=== PATIENT | female | born 1940 | race Asian ===

== ENCOUNTER 2016-12-16 10:41 | Inpatient (IN) | payer OTHER ==
[~2016-12-16] VITALS: Ht 162.6 cm; Wt 62.1 kg
[2016-12-16 11:30] LABS: CALCIUM 7.7 mg/dL (8.5-10.1); CHLORIDE SERUM 114 mmol/L (98-107); CREATININE SERUM 0.7 mg/dL (0.6-1.0); GLUCOSE SERUM 194 mg/dL (74-106); POTASSIUM SERUM 3.7 mmol/L (3.5-5.1); SODIUM SERUM 143 mmol/L (136-145)
[2016-12-16 11:35] LABS: ALBUMIN 2.8 g/dL (3.4-5.0); ALKALINE PHOSPHATASE 64 U/L (46-116); ALT/SGPT 28 U/L (14-59); AST/SGOT 34 U/L (15-37); BILIRUBIN TOTAL 1.08 mg/dL (0.20-1.00)
[2016-12-16 11:37] LABS: BASOPHIL % 0.5 % (0-2); RED CELL DISTRIBUTION WIDTH 14.5 % (11.5-14.5)
[2016-12-16 11:45] LABS: PLATELET COUNT 86 x10^3mcL (130-400)
[2016-12-16 14:18] LABS: UA SPECIFIC GRAVITY >=1.030 (1.005-1.035); microscopic required? YES; urine erythrocyte TRACE (NEGATIVE)
[2016-12-16 14:27] LABS: AMPHETAMINE QUAL UR NONE DETECTED (NEG <=1000)
[2016-12-16 14:47] LABS: MAGNESIUM 1.7 mg/dL (1.8-2.4); PHOSPHOROUS 4.1 mg/dL (2.5-4.9)
[2016-12-16 14:48] LABS: CHOLESTEROL/HDL RATIO 2.4
[2016-12-16 14:59] LABS: FREE T4 1.05 ng/dL (0.76-1.46); FREE THYROXINE INDEX 2.4 ug/dL (1.4-4.5); T3 TOTAL 1.02 ng/mL; T4(THYROXINE) 6.6 ug/dL (4.7-13.3)
[2016-12-16 15:54] VITALS: BP 97/56
[2016-12-16 18:50] VITALS: BP 98/52
[2016-12-16 19:56] LABS: BASOPHIL % 0.2 % (0-2)
[2016-12-16 19:58] LABS: PLATELET COUNT 53 x10^3mcL (130-400); RED CELL DISTRIBUTION WIDTH 14.6 % (11.5-14.5)
[2016-12-16] MEDS ORDERED: PROPRANOLOL HCL10 MG PO (20:59)
[2016-12-16 21:33] VITALS: BP 147/81
[2016-12-17] VITALS (10 sets, daily range): BP systolic 99–141; BP diastolic 41–70
[2016-12-17 03:24] LABS: BASOPHIL % 0.1 % (0-2)
[2016-12-17 03:28] LABS: PLATELET COUNT 79 x10^3mcL (130-400); RED CELL DISTRIBUTION WIDTH 14.8 % (11.5-14.5)
[2016-12-17 03:42] LABS: rbc morphology (normal/abnorm) ABNORMAL (NORMAL)
[2016-12-17 03:43] LABS: ovalocyte/elliptocyte 1+
[2016-12-17 04:09] LABS: CALCIUM 6.9 mg/dL (8.5-10.1); CARBON DIOXIDE 15.7 mmol/L (21-32); CHLORIDE SERUM 119 mmol/L (98-107); CREATININE SERUM 0.8 mg/dL (0.6-1.0); GLUCOSE SERUM 142 mg/dL (74-106); MAGNESIUM 1.7 mg/dL (1.8-2.4); PHOSPHOROUS 3.9 mg/dL (2.5-4.9); POTASSIUM SERUM 3.9 mmol/L (3.5-5.1); SODIUM SERUM 146 mmol/L (136-145)
[2016-12-17 14:11] LABS: BASOPHIL % 0.3 % (0-2)
[2016-12-17 14:25] LABS: PLATELET COUNT 84 x10^3mcL (130-400); RED CELL DISTRIBUTION WIDTH 15.4 % (11.5-14.5)
[2016-12-18] VITALS (7 sets, daily range): BP systolic 87–135; BP diastolic 52–76
[2016-12-18 03:07] LABS: BASOPHIL % 2.2 % (0-2); PLATELET COUNT 84 x10^3mcL (130-400); RED CELL DISTRIBUTION WIDTH 15.4 % (11.5-14.5)
[2016-12-18 03:09] LABS: rbc morphology (normal/abnorm) ABNORMAL (NORMAL)
[2016-12-18 05:49] LABS: BASOPHIL % 0.3 % (0-2)
[2016-12-18 06:04] LABS: CALCIUM 6.7 mg/dL (8.5-10.1); CARBON DIOXIDE 15.9 mmol/L (21-32); CHLORIDE SERUM 118 mmol/L (98-107); CREATININE SERUM 0.8 mg/dL (0.6-1.0); GLUCOSE SERUM 128 mg/dL (74-106); MAGNESIUM 3.4 mg/dL (1.8-2.4); PHOSPHOROUS 2.9 mg/dL (2.5-4.9); POTASSIUM SERUM 3.9 mmol/L (3.5-5.1); SODIUM SERUM 144 mmol/L (136-145)
[2016-12-18 06:06] LABS: RED CELL DISTRIBUTION WIDTH 16.3 % (11.5-14.5)
[2016-12-18 06:08] LABS: rbc morphology (normal/abnorm) ABNORMAL (NORMAL)
[2016-12-18 06:09] LABS: PLATELET COUNT 50 x10^3mcL (130-400)
[2016-12-19] VITALS (14 sets, daily range): BP systolic 96–202; BP diastolic 50–104
[2016-12-19 11:56] LABS: BASOPHIL % 0.2 % (0-2)
[2016-12-19 12:04] LABS: CALCIUM 6.6 mg/dL (8.5-10.1); CARBON DIOXIDE 17.8 mmol/L (21-32); CHLORIDE SERUM 116 mmol/L (98-107); CREATININE SERUM 0.8 mg/dL (0.6-1.0); GLUCOSE SERUM 123 mg/dL (74-106); POTASSIUM SERUM 3.4 mmol/L (3.5-5.1); SODIUM SERUM 142 mmol/L (136-145)
[2016-12-19 12:15] LABS: PLATELET COUNT 54 x10^3mcL (130-400); RED CELL DISTRIBUTION WIDTH 16.5 % (11.5-14.5)
[2016-12-20 05:33] VITALS: BP 110/57
[2016-12-20 07:01] LABS: CALCIUM 6.8 mg/dL (8.5-10.1); CARBON DIOXIDE 17.7 mmol/L (21-32); CHLORIDE SERUM 116 mmol/L (98-107); CREATININE SERUM 0.5 mg/dL (0.6-1.0); GLUCOSE SERUM 122 mg/dL (74-106); MAGNESIUM 1.8 mg/dL (1.8-2.4); PHOSPHOROUS 1.1 mg/dL (2.5-4.9); POTASSIUM SERUM 3.4 mmol/L (3.5-5.1); SODIUM SERUM 142 mmol/L (136-145)
[2016-12-20 07:19] LABS: BASOPHIL % 0.2 % (0-2)
[2016-12-20 07:20] LABS: PLATELET COUNT 57 x10^3mcL (130-400); RED CELL DISTRIBUTION WIDTH 16.6 % (11.5-14.5)
[2016-12-20 10:10] VITALS: BP 108/54
[2016-12-20 13:30] VITALS: BP 116/61
[2016-12-20 17:20] LABS: PLATELET COUNT 73 x10^3mcL (130-400); RED CELL DISTRIBUTION WIDTH 16.8 % (11.5-14.5)
[2016-12-20 17:43] VITALS: BP 110/55
[2016-12-20 17:55] LABS: BAND NEUTROPHIL 3 % (0-10); BASOPHIL 0 % (0-2); MONOCYTE 6 % (0-7); SEGMENTED NEUTROPHILS 73 % (37-75)
[2016-12-20 17:58] LABS: rbc morphology (normal/abnorm) ABNORMAL (NORMAL)
[2016-12-20 19:45] VITALS: BP 115/61
[2016-12-20 23:23] VITALS: BP 124/47
[2016-12-21 04:32] VITALS: BP 91/54
[2016-12-21 05:51] LABS: CALCIUM 6.5 mg/dL (8.5-10.1); CHLORIDE SERUM 115 mmol/L (98-107); CREATININE SERUM 0.6 mg/dL (0.6-1.0); GLUCOSE SERUM 212 mg/dL (74-106); MAGNESIUM 1.7 mg/dL (1.8-2.4); PHOSPHOROUS 2.2 mg/dL (2.5-4.9); POTASSIUM SERUM 4.5 mmol/L (3.5-5.1); SODIUM SERUM 141 mmol/L (136-145)
[2016-12-21 05:58] LABS: BASOPHIL % 0.4 % (0-2)
[2016-12-21 06:01] LABS: PLATELET COUNT 78 x10^3mcL (130-400); RED CELL DISTRIBUTION WIDTH 15.8 % (11.5-14.5)
[2016-12-21 06:24] LABS: rbc morphology (normal/abnorm) ABNORMAL (NORMAL); tear drop cell (dacryocyte) 1+
[2016-12-21 07:30] VITALS: BP 70/44
[2016-12-21 08:10] VITALS: BP 97/61
[2016-12-21] MEDS ORDERED: IND10 PO (08:53)
[2016-12-21] MEDS ORDERED: APAP/HYDROCODON1 T13 PO (08:55)
[2016-12-21] MEDS ORDERED: DIL2 PO (08:55)
[2016-12-21] MEDS ORDERED: TYL325 PO ×2 (08:56)
[2016-12-21] MEDS ORDERED: MOR2I IV (08:56)
[2016-12-21] MEDS ORDERED: LAC30L PO (08:57)
[2016-12-21] MEDS ORDERED: OSCD PO (08:58)
[2016-12-21] MEDS ORDERED: KLOR-CON M2020 MEQ PO (08:58)
[2016-12-21] MEDS ORDERED: NPHOS PO (08:59)
[2016-12-21] MEDS ORDERED: ZOFI IV (09:18)
[2016-12-21] MEDS ORDERED: PROT40I IV ×2 (09:19→09:25)
[2016-12-21] MEDS ORDERED: THERA TABS1 TAB PO (09:20)
[2016-12-21] MEDS ORDERED: MAG PO (09:27)
[2016-12-21] MEDS ORDERED: [UNRECOGNIZED DRUG - CODE] IV (09:48)
[2016-12-21] MEDS ORDERED: FERROUS SULFAT324 M1 PO (09:49)
[2016-12-21] MEDS ORDERED: PHARMASSURE VI500 MG PO (09:52)
[2016-12-21 10:56] VITALS: BP 91/57
[2016-12-21 11:04] VITALS: Ht 162.6 cm; Wt 62.1 kg
== END 2016-12-21 12:08 | disposition short-term general hospital (02) | DRG 229 ==
LOC: ED 10:41 → IC 13:48 → DU 13:48 → MU 20:26 → DU 20:29 → IC 20:31 → DU 12-17 22:35 → IC 12-18 00:14 → DU 12-19 18:39 → IC 12-20 17:13
PROVIDERS: Emergency Medicine; Internal Medicine Gastroenterology; ADMIT Family Medicine Sports Medicine
PROC: 06L34CZ Occlusion of Esophageal Vein with Extraluminal Device, Percutaneous Endoscopic Approach (ICD-10-PCS; principal; 2016-12-16 23:00)
PROC: 30233N1 Transfusion of Nonautologous Red Blood Cells into Peripheral Vein, Percutaneous Approach (ICD-10-PCS; 2016-12-17)
PROC: 02HV33Z Insertion of Infusion Device into Superior Vena Cava, Percutaneous Approach (ICD-10-PCS; 2016-12-18)
DX: K64.8 Other hemorrhoids (principal); N17.0 Acute kidney failure with tubular necrosis; E43 Unspecified severe protein-calorie malnutrition; I85.11 Secondary esophageal varices with bleeding; E87.0 Hyperosmolality and hypernatremia; D69.59 Other secondary thrombocytopenia; K76.6 Portal hypertension; K74.60 Unspecified cirrhosis of liver; D50.0 Iron deficiency anemia secondary to blood loss (chronic); E83.42 Hypomagnesemia; E83.51 Hypocalcemia; B18.2 Chronic viral hepatitis C; M17.12 Unilateral primary osteoarthritis, left knee; N28.1 Cyst of kidney, acquired; R16.1 Splenomegaly, not elsewhere classified; Z68.20 Body mass index [BMI] 20.0-20.9, adult; K31.819 Angiodysplasia of stomach and duodenum without bleeding; J98.11 Atelectasis; I08.3 Combined rheumatic disorders of mitral, aortic and tricuspid valves
CPT/HCPCS: 36556; 43235; 82962; 83880; 84439; C9113; J0690; J1170; J1642; J2060; J2250; J2270; J2354; J2916; J3010; J3430; J3475; J3480; J3490; J7030; J7040; J7050; P9016; Q0092; Q0163

== ENCOUNTER 2017-03-04 11:49 | Inpatient (IN) | payer OTHER ==
[~2017-03-04] VITALS: Ht 162.6 cm; Wt 50.8 kg
[~2017-03-04 11:49] MED LIST: APAP/HYDROCODON1 T13 PO; DIL2 PO; FERROUS SULFAT324 M1 PO; IND10 PO; KLOR-CON M2020 MEQ PO; LAC30L PO; MAG PO; MOR2I IV; NPHOS PO; OSCD PO; PHARMASSURE VI500 MG PO; PROPRANOLOL HCL10 MG PO; PROT40I IV; THERA TABS1 TAB PO; TYL325 PO; ZOFI IV; [UNRECOGNIZED DRUG - CODE] IV
[2017-03-04 11:56] VITALS: Ht 162.6 cm; Wt 50.8 kg
[2017-03-04 13:13] LABS: BASOPHIL % 0.7 % (0-2)
[2017-03-04 13:21] LABS: PLATELET COUNT 70 x10^3mcL (130-400)
[2017-03-04 13:24] LABS: CALCIUM 8.2 mg/dL (8.5-10.1); CARBON DIOXIDE 22.2 mmol/L (21-32); CHLORIDE SERUM 110 mmol/L (98-107); CREATININE SERUM 0.8 mg/dL (0.6-1.0); GLUCOSE SERUM 104 mg/dL (74-106); POTASSIUM SERUM 3.2 mmol/L (3.5-5.1); SODIUM SERUM 142 mmol/L (136-145)
[2017-03-04 13:28] LABS: ALKALINE PHOSPHATASE 100 U/L (46-116); ALT/SGPT 24 U/L (14-59); AMYLASE 107 U/L (25-115); AST/SGOT 26 U/L (15-37); BILIRUBIN TOTAL 1.2 mg/dL (0.20-1.00); CHOLESTEROL 139 mg/dL (<200); HDL CHOLESTEROL 58 mg/dL (40-60); LIPASE 413 IU/L (73-393); TOTAL PROTEIN, SERUM 7.1 g/dL (6.4-8.2)
[2017-03-04 13:29] LABS: ALBUMIN 3.2 g/dL (3.4-5.0)
[2017-03-04 14:39] LABS: CHOLESTEROL/HDL RATIO 2.4; MAGNESIUM 1.8 mg/dL (1.8-2.4); PHOSPHOROUS 3.8 mg/dL (2.5-4.9)
[2017-03-04 14:46] LABS: T3 TOTAL 1.12 ng/mL
[2017-03-04 14:48] LABS: FREE T4 1.27 ng/dL (0.76-1.46); FREE THYROXINE INDEX 3.4 ug/dL (1.4-4.5); T4(THYROXINE) 9.5 ug/dL (4.7-13.3)
[2017-03-04 15:33] VITALS: BP 130/63
[2017-03-04 16:11] LABS: microscopic required? YES; urine erythrocyte 1+ (NEGATIVE)
[2017-03-04 16:46] LABS: IRON 129 ug/dL (50-170); TOTAL IRON BINDING CAPACITY 307 ug/dL (250-450)
[2017-03-04 16:50] LABS: RED BLOOD CELLS 3.33 M/mm3 (4.10-5.10)
[2017-03-04 17:00] LABS: CALCIUM 7.7 mg/dL (8.5-10.1); CARBON DIOXIDE 19.5 mmol/L (21-32); CHLORIDE SERUM 114 mmol/L (98-107); CREATININE SERUM 0.6 mg/dL (0.6-1.0); GLUCOSE SERUM 103 mg/dL (74-106); POTASSIUM SERUM 3.1 mmol/L (3.5-5.1); SODIUM SERUM 143 mmol/L (136-145)
[2017-03-04 17:56] LABS: RED CELL DISTRIBUTION WIDTH 19.1 % (11.5-14.5)
[2017-03-04 17:57] LABS: PLATELET COUNT 52 x10^3mcL (130-400)
[2017-03-04 18:28] LABS: BAND NEUTROPHIL 0 % (0-10); BASOPHIL 0 % (0-2); MONOCYTE 5 % (0-7); SEGMENTED NEUTROPHILS 30 % (37-75); rbc morphology (normal/abnorm) NORMAL (NORMAL)
[2017-03-04 18:29] LABS: PLATELET MORPHOLOGY PLATELETS DECREASED
[2017-03-04 21:16] VITALS: BP 135/58
[2017-03-05 06:07] VITALS: BP 115/62
[2017-03-05 07:05] LABS: CALCIUM 8.1 mg/dL (8.5-10.1); CARBON DIOXIDE 18.1 mmol/L (21-32); CHLORIDE SERUM 115 mmol/L (98-107); CREATININE SERUM 0.7 mg/dL (0.6-1.0); GLUCOSE SERUM 118 mg/dL (74-106); PHOSPHOROUS 4.3 mg/dL (2.5-4.9); SODIUM SERUM 145 mmol/L (136-145)
[2017-03-05 08:54] LABS: PLATELET COUNT 53 x10^3mcL (130-400); RED CELL DISTRIBUTION WIDTH 18.6 % (11.5-14.5)
[2017-03-05 11:06] VITALS: BP 147/66
[2017-03-05 12:36] LABS: SEGMENTED NEUTROPHILS 40 % (37-75)
[2017-03-05 12:37] LABS: MONOCYTE 24 % (0-7); PLATELET MORPHOLOGY PLATELETS DECREASED; rbc morphology (normal/abnorm) ABNORMAL (NORMAL)
[2017-03-05 14:00] VITALS: BP 137/74
[2017-03-05 17:03] VITALS: BP 133/57
[2017-03-05 21:45] VITALS: BP 145/67
[2017-03-06 05:28] VITALS: BP 135/68
[2017-03-06 06:39] LABS: CALCIUM 7.7 mg/dL (8.5-10.1); CARBON DIOXIDE 21.2 mmol/L (21-32); CHLORIDE SERUM 112 mmol/L (98-107); CREATININE SERUM 0.7 mg/dL (0.6-1.0); GLUCOSE SERUM 120 mg/dL (74-106); MAGNESIUM 1.8 mg/dL (1.8-2.4); PHOSPHOROUS 3.4 mg/dL (2.5-4.9); POTASSIUM SERUM 3.8 mmol/L (3.5-5.1); SODIUM SERUM 142 mmol/L (136-145)
[2017-03-06 06:59] LABS: PLATELET COUNT 56 x10^3mcL (130-400); RED CELL DISTRIBUTION WIDTH 17.4 % (11.5-14.5)
[2017-03-06 09:00] VITALS: BP 126/63
[2017-03-06 09:28] VITALS: BP 140/60
[2017-03-06] MEDS ORDERED: IND10 PO (12:26)
[2017-03-06 12:36] LABS: ATYPICAL LYMPH 1 %; BAND NEUTROPHIL 3 % (0-10); BASOPHIL 0 % (0-2); MONOCYTE 3 % (0-7); SEGMENTED NEUTROPHILS 82 % (37-75)
[2017-03-06 12:37] LABS: rbc morphology (normal/abnorm) ABNORMAL (NORMAL)
[2017-03-06] MEDS ORDERED: COLACE100 MG PO (12:37)
[2017-03-06] MEDS ORDERED: PROPRANOLOL HCL10 MG PO (12:37)
[2017-03-06 12:38] LABS: PLATELET MORPHOLOGY PLATELETS DECREASED
[2017-03-06 13:26] VITALS: BP 140/60
[2017-03-06 14:00] VITALS: BP 146/65
== END 2017-03-06 14:13 | disposition home or self-care (01) | DRG 242 ==
LOC: ED 11:49 → DU 13:46
PROVIDERS: Emergency Medicine; Internal Medicine Gastroenterology; ADMIT Family Medicine
PROC: 06L38CZ Occlusion of Esophageal Vein with Extraluminal Device, Via Natural or Artificial Opening Endoscopic (ICD-10-PCS; principal; 2017-03-05 09:45)
DX: I85.01 Esophageal varices with bleeding (principal); E44.0 Moderate protein-calorie malnutrition; K76.6 Portal hypertension; D70.9 Neutropenia, unspecified; D69.6 Thrombocytopenia, unspecified; K64.8 Other hemorrhoids; E87.8 Other disorders of electrolyte and fluid balance, not elsewhere classified; K62.5 Hemorrhage of anus and rectum; E87.6 Hypokalemia; K74.69 Other cirrhosis of liver; Z68.1 Body mass index [BMI] 19.9 or less, adult; Z90.49 Acquired absence of other specified parts of digestive tract; Z90.721 Acquired absence of ovaries, unilateral
CPT/HCPCS: 43235; 83880; 84439; C9113; J1200; J1610; J2250; J2310; J2354; J3010; J3490; J7030; Q0092

== ENCOUNTER 2017-07-23 06:57 | Day surgery (SDC) | payer OTHER ==
[~2017-07-23] VITALS: Ht 157.5 cm; Wt 50.8 kg
[~2017-07-23 06:57] MED LIST changes: +COLACE100 MG PO
[2017-07-23 07:14] VITALS: BP 131/62
[2017-07-23 10:19] VITALS: BP 119/67
== END 2017-07-23 10:45 | disposition home or self-care (01) ==
LOC: GI 06:57 → OR 08:30 → GI 08:30
PROVIDERS: Internal Medicine Gastroenterology
PROC: 06L38CZ Occlusion of Esophageal Vein with Extraluminal Device, Via Natural or Artificial Opening Endoscopic (ICD-10-PCS; principal; 2017-07-23 08:30)
DX: I85.10 Secondary esophageal varices without bleeding (principal); K74.69 Other cirrhosis of liver; K76.6 Portal hypertension
CPT/HCPCS: 43235; J1200; J1610; J2250; J2310; J3010; J3490

== ENCOUNTER 2018-01-31 07:55 | Day surgery (SDC) | payer OTHER ==
[~2018-01-31] VITALS: Ht 162.6 cm; Wt 53.1 kg
[2018-01-31 07:48] VITALS: BP 137/71
[2018-01-31 08:45] VITALS: BP 134/79
== END 2018-01-31 10:35 | disposition home or self-care (01) ==
LOC: GI 07:55 → OR 08:30 → GI 09:00
PROVIDERS: Internal Medicine Gastroenterology
PROC: 0D568ZZ Destruction of Stomach, Via Natural or Artificial Opening Endoscopic (ICD-10-PCS; principal; 2018-01-31 08:00)
PROC: 06L38CZ Occlusion of Esophageal Vein with Extraluminal Device, Via Natural or Artificial Opening Endoscopic (ICD-10-PCS; 2018-01-31 08:00)
DX: K74.69 Other cirrhosis of liver (principal); I85.10 Secondary esophageal varices without bleeding; K76.6 Portal hypertension; K31.89 Other diseases of stomach and duodenum; K44.9 Diaphragmatic hernia without obstruction or gangrene; I10 Essential (primary) hypertension
CPT/HCPCS: 43235; G0500; J1610; J2250; J2310; J3010; J3490

== ENCOUNTER 2018-05-04 11:59 | Inpatient (IN) | payer OTHER ==
[~2018-05-04] VITALS: Ht 162.6 cm; Wt 51.0 kg
--- NOTE | 2018-05-04 12:17 | NUR ---
PT WAS FOUND AT HOME BY HER CHILDREN AT 0900. MEDIC STS THAT THE CHILDREN STATE THAT SHE SAID SHE HAD FALLEN AT 0300. WHEN THEY FOUND THE PT SHE WAS NO UNCONSCIOUS NOR DID SHE STATE THAT SHE LOST CONSCIOUSNESS. PT STS THAT WHEN SHE GOT UP TO GO "WEE WEE" THAT SHE FELT DIZZY AND FELL TO THE GROUND. THE PT STS THAT SHE DID NOT PASSOUT BUT JUST FELT REALLY DIZZY. PT GOLDEN HITTING HER HEAD AND NO VOMITING HAS OCCURED. PT STS THAT JUST HER LEFT HURTS. PT IS ALERT AND ORIENTED. ANSWERING IN FULL SENTENCES. NO DISTRESS NOTED. VSS. RESP E/U. WILL CONTINUE TO MONITOR.
--- NOTE | 2018-05-04 12:43 | NUR ---
TO X-RAY VIA [facility].
--- NOTE | 2018-05-04 13:25 | NUR ---
LAB AT AT BEDSIDE. PT IS IN POSITION OF COMFORT. NO DISTRESS NOTED. VSS.
[2018-05-04 13:54] LABS: BASOPHIL % 0.1 % (0-2); RED CELL DISTRIBUTION WIDTH 12.9 % (11.5-14.5)
--- NOTE | 2018-05-04 13:54 | NUR ---
PT OBSERVED SLEEPING ON GURNEY IN POSITION OF COMFORT. PT IN NAD. BREATHING EVEN AND UNLABORED. CM AND O2 MONITOR IN PLACE. WILL CONTINUE TO MONITOR.
[2018-05-04 14:01] LABS: PLATELET COUNT 51 x10^3mcL (130-400)
[2018-05-04 14:04] LABS: CALCIUM 8.7 mg/dL (8.5-10.1); CARBON DIOXIDE 19.4 mmol/L (21-32); CHLORIDE SERUM 108 mmol/L (98-107); CREATININE SERUM 0.9 mg/dL (0.6-1.0); GLUCOSE SERUM 132 mg/dL (74-106); POTASSIUM SERUM 3.9 mmol/L (3.5-5.1); SODIUM SERUM 139 mmol/L (136-145)
[2018-05-04 14:09] LABS: ALBUMIN 3.5 g/dL (3.4-5.0); ALKALINE PHOSPHATASE 69 U/L (46-116); ALT/SGPT 53 U/L (14-59); AST/SGOT 45 U/L (15-37); BILIRUBIN TOTAL 1.5 mg/dL (0.20-1.00); TOTAL PROTEIN, SERUM 7.2 g/dL (6.4-8.2)
--- NOTE | 2018-05-04 14:46 | NUR ---
PT IN POSITION OF COMFORT. ANSWERING ALL QUESTION CLEARLY. ALERT AND ORIENTED. VSS. RESP E/U. PT WAS GIVEN MORE BLANKETS. PT STILL HAS SOME PAIN 05/25. NO DISTRESS NOTED. WILL CONTINUE TO MONITOR.
[2018-05-04] MEDS ORDERED: SPIRONOLACTONE50 MG PO (15:23)
--- NOTE | 2018-05-04 15:33 | NUR ---
FAMILY PROVIDED MED LIST W/ SOME DOSAGES BUT NO FREQUENCIES. UNABLE TO COMPLETE MED REC.
[2018-05-04 15:42] LABS: MAGNESIUM 1.7 mg/dL (1.8-2.4); PHOSPHOROUS 3.2 mg/dL (2.5-4.9)
--- NOTE | 2018-05-04 15:48 | NUR ---
REPORT GIVEN TO NEVA HERBERT
[2018-05-04 15:49] LABS: T3 TOTAL 1.11 ng/mL
[2018-05-04 15:50] LABS: FREE T4 1.16 ng/dL (0.76-1.46); FREE THYROXINE INDEX 2.9 ug/dL (1.4-4.5); T4(THYROXINE) 8.4 ug/dL (4.7-13.3)
[2018-05-04] MEDS ORDERED: PROPRANOLOL HCL10 MG PO (15:58)
--- NOTE | 2018-05-04 16:03 | NUR ---
PT CAME IN VIA [facility] FROM E/D, ACCOMPANIED BY RN, TRANSPORTER, AND PT'S DAUGHTER VIRAJ MENJIVAR. PT A/A/O X 2 (PERSON, PURPOSE, EPISODES OF FORGETFULNESS); PT IS TAGALOG-SPEAKING, [facility]. PT WAS TRANSFERRED FROM [facility] TO BED, SHOOTING LEFT HIP PAIN 10/25; LEFT HIP AND UPPER PORTION OF THIGH WITH +2 EDEMA, NON-PITTING. BED TRAPEZE INSTALLED ON BED FOR PT'S MAXIMUM BED MOBILITY, FALL PREVENTION PROTOCOL INITIATED. DENIES CHEST PAIN OR DISCOMFORT AT THIS TIME. NO RESPIRATORY DISTRESS NOTED. IV SITE LFA 20G, CDI. ORIENTED PT AND DAUGHTER TO ROOM, BED CONTROLS, CALL LIGHT SYSTEM. SIDE RAILS UP X 2, BED IN LOW POSITION. WILL ENDORSE TO KEON CALLE.
--- NOTE | 2018-05-04 16:05 | NUR ---
PT TAKEN UPSTAIRS BY EMT. VSS.
[2018-05-04 16:27] VITALS: BP 136/68
--- NOTE | 2018-05-04 16:33 | NUR ---
DR. NATH AT BEDSIDE SETTING UP BUCKS TRACTION FOR PT. AT THIS TIME.
--- NOTE | 2018-05-04 17:10 | NUR ---
NOTED 7 LBS BUCKS TRACTION TO LLE. BUCKS TRACTION WITH OVERHEAD TRAPEZE WAS SET UP BY DR. NATH.
--- NOTE | 2018-05-04 19:59 | NUR ---
SHIFT REASSESSMENT DONE.PATIENT ALERT AND ORIENTED X 2.NEEDS ANTICIPATED.DAUGHTER AT BEDSIDER,SUPPORTIVE OF CARE.PATIENT HAS L HIP FX.BUCKS TRACTION 7 LBS.OVERHEAD TRAPEZE.CORRECT BODY ALIGNMENT MAINTAINED.REMINDED OFFICE MACHINE INSTALLER WHEN PATIENT ASSIST BEDPAN,WE NEED UA FROM ADMISSION.MEDSURG PATIENT.EDEMA NOTED L HIP.L UPPER THIGH.WILL GIVE PAIN MED WHEN DUE.
--- NOTE | 2018-05-04 20:00 | NUR ---
SHIFT REASSESSMENT DOEN.PATIENT VERY ALERT AND ORIENTED X 4 AT THIS TIME,DAUGHTER AT BEDSIDE,SPEAKS FRENCH AND TAGALOG,NEEDS ANTICIPATED.REPORT SAY [place].BREATHING EASY.GEN WEAKNESS,L HIP FX.HAS BUCKS TRACTION 7 LBS L LEG.IN CORRECT BODY ALIGNMENT.OVERHEAD TRAPEZE IN PLACE.NS AT 70 CC/ HOUR.LFA.MEDSURG PATIENT.L HIP PITTING EDEMA NOTED, AND L UPPERTHIGH.ASKING FOR PAIN MED.WILL CHECK.CALL LIGHT IN REACH,WANTED TO USE BEDPAN,TRANSPORTATION DISPATCHER ASSISTED HER,VOIDED,UA SENT TO LAB.
--- NOTE | 2018-05-04 20:45 | NUR ---
NORCO GIVEN,BUT WANTING PAIN SHOT,WILL GIVE LATER.
--- NOTE | 2018-05-04 21:00 | NUR ---
BRUSHING HER TEETH,PM CARE DONE BY SELF,ASSIST ADLS PRN.
[2018-05-04 22:09] LABS: microscopic required? NO
[2018-05-04 22:24] LABS: urine erythrocyte NEGATIVE (NEGATIVE)
--- NOTE | 2018-05-04 23:50 | NUR ---
NO COMPLAINT,NEEDS ATTENDED.CALL LIGHT IN REACH.
[2018-05-05 02:29] VITALS: BP 98/52
--- NOTE | 2018-05-05 04:00 | NUR ---
SLEEPING WELL DURING THE NIGHT.BUCKS TRACTION [address]WILL ENDORSE TO NEXT SHIFT.
[2018-05-05 05:35] VITALS: BP 106/59
--- NOTE | 2018-05-05 06:15 | NUR ---
WILL BE NPO AFTER MIDNIGHT TONIGHT,POSSIBLE SURGERY.DR BARCLAY ORTHO CONSULT.
[2018-05-05 06:43] VITALS: Ht 162.6 cm; Wt 51.0 kg
--- NOTE | 2018-05-05 06:44 | NUR ---
DAUGHTER FROM [place] UPDATED WITH HER CONDITION.PHONE NO. SIMONA PERDOMO, .ANOTHER DAUGHTER CLIFFORD OSPINA [phone].
[2018-05-05 07:14] LABS: BASOPHIL % 0.2 % (0-2)
[2018-05-05 07:28] LABS: CARBON DIOXIDE 21.6 mmol/L (21-32); CHLORIDE SERUM 110 mmol/L (98-107); CREATININE SERUM 0.6 mg/dL (0.6-1.0); GLUCOSE SERUM 118 mg/dL (74-106); MAGNESIUM 1.7 mg/dL (1.8-2.4); SODIUM SERUM 143 mmol/L (136-145)
--- NOTE | 2018-05-05 07:31 | NUR ---
RECEIVED PT FROM [place]. PT AWAKE, ALERT A/OX4. PT ON RA, NO RESP DISTRESS NOTED. LUNGS CTA. DENIES HEADACHE, DENIES CHEST PAIN. PT REPORTS PAIN IN LEFT HIP 5/10 BUT TOLERABLE AT THIS TIME. WANTS TO HAVE MEDICINE "LATER". PULSE PALPABLE IN RIGHT FOOT. PT LEFT LEG BANDAGED AT THIS TIME AND IN TRACTION WITH 7 LB WEIGHT. ACTIVE BOWEL SOUNDS. PT REPORTS LAST BM 05/04/18. IV ACCESS LFA 20G C/D/I WITH NS AT 70ML/HR. SAFETY MEASURES IN PLACE. BED LOW AND LOCKED. CALL LIGHT WITHIN REACH.
[2018-05-05 08:15] LABS: PLATELET COUNT 40 x10^3mcL (130-400)
--- NOTE | 2018-05-05 08:38 | NUR ---
DR. HURTADO AND RESIDENT DR. NATH ROUND ON PATIENT, DR. HURTADO AWARE PLTS 40. INFORM DR. HURTADO PATIENT NEED MEJIA DUE TO VERY PAINFUL WITH MOVEMENT.
[2018-05-05 09:07] VITALS: BP 110/58
--- NOTE | 2018-05-05 14:45 | NUR ---
PATIENT RESTING IN BED AWAKE/ALERT, NO C/O PAIN AT THIS TIME. GAVE PO MEDS. PATIENT ASKING FOR BEDPAN REMIND PATIENT GOT MEJIA CATHETER FOR URINE, CALL LIGHT IN REACH.
[2018-05-05 14:47] VITALS: BP 129/49
--- NOTE | 2018-05-05 15:05 | NUR ---
OBTAINED TELEPHONE CONSENT FROM ANNALISE OSPINA, SON-IN-LAW OF THE PATIENT. DAUGHTER OF PATIENT CLIFFORD GAVE PERMISSION FOR TO GIVE CONSENT. CONSENT FOR SURGERY, ANESTHESIA AND BLOOD TRANSFUSION GIVEN BY TELEPHONE AND WITNESSED BY JOSE HERBERT.
--- NOTE | 2018-05-05 15:56 | NUR ---
DR BARCLAY HERE TO TALK TO PATIENT REGARDING SURGERY TOMORROW.
[2018-05-05 16:46] VITALS: BP 118/60
--- NOTE | 2018-05-05 16:55 | NUR ---
SPOKE WITH DAUGHTER, SIMONA. PER DAUGHTER, PT DOES NOT ALWAYS ASK FOR PAIN MED. PT COMPLAINING OF AN ACHE THAT IS CONSTANT. 07/25. MORPHINE GIVEN IVP ORDERED PRN (SEE EMAR) WILL CONTINUE TO MONITOR.
--- NOTE | 2018-05-05 18:40 | NUR ---
PT STABLE AT THIS TIME. PT AWAKE AND ALERT. PT RESTING IN BED, NO ACUTE DISTRESS NOTED AT THIS TIME. ALL NEEDS MET THROUGHOUT SHIFT. SAFETY MEASURES MAINTAINED. WILL CONTINUE TO MONITOR AND ENDORSE TO SLITTING MACHINE OPERATOR.
--- NOTE | 2018-05-05 19:57 | NUR ---
RECEIVED PT FROM DAY SHIFT RN. PT IS AAOX3. PT DENIES ANY PAIN. NO SIGNS OF DISTRESS NOTED. IV LFA PATENT, INFUSING WELL. F/C IN PLACE DRAINING YELLOW URINE IN BAG. LEFT HIP EDEMA NOTED, BUCKS TRACTION IN PLACE, DENIES DISCOMFORT. CALL BUTTON WITHIN REACH. SAFETY PRECAUTIONS IN PLACE. WILL CONTINUE TO MONITOR.
[2018-05-05 21:09] VITALS: BP 115/59
--- NOTE | 2018-05-06 00:57 | NUR ---
PT USED THE BEDPAN, SENIOR PROCESS ENGINEER AT BEDSIDE TO ASSIST. WILL MONITOR.
--- NOTE | 2018-05-06 01:34 | NUR ---
VERIFIED WITH KURTIS FROM BLOOD BANK PLATELETS WILL BE READY FOR OFFSHORING MANAGER FOR PT SURGERY.
--- NOTE | 2018-05-06 03:40 | NUR ---
ROUNDS MADE. PT BREATHING EVEN AND UNLABORED. NO SIGNS OF DISTRESS NOTED. BUCKS TRACTION IN PLACE WITH WEIGHTS HANGING FREELY. IV INFUSING WELL. WILL CONTINUE TO MONITOR.
--- NOTE | 2018-05-06 04:32 | NUR ---
RECEIVED A CALL FROM CLIFFORD OSPINA (DAUGHTER) WANTED AN UPDATE ON PT, ALSO IS REQUESTING TO SPEAK TO THE THE SURGEON IN CHARGE FOR MORE INFORTMATION, WILL ENDORSE TO AM SHIFT, DAUGHTER STATED SHE WILL CALL BACK.
--- NOTE | 2018-05-06 04:57 | NUR ---
PT SLEPT ON AND OFF THROUGHOUT THE NIGHT WITH NO SIGNS OF DISTRESS. BREATHING EVEN AND UNLBAORED WITH NO SIGNS OF RESP DISTRESS. PT DENIES ANY PAIN. PT DID NOT REPORT ANY PAIN THROUGHOUT THE NIGHT. IV LFA PATENT AND INFUSING WELL. BUCKS TRACTION IN PLACE TO LLE WITH WEIGHTS HANGING FREELY. PT NPO SINCE MIDNIGHT. CALL BUTTON WITHIN REACH. SAFETY PRECAUTIONS IN PLACE. WILL CONTINUE TO MONITOR AND ENDORSE CARE TO DAY SHIFT RN.
[2018-05-06 05:59] VITALS: BP 104/51
--- NOTE | 2018-05-06 06:19 | NUR ---
RECEIVED A CALL FROM SIMONA (DAUGHTER) CURRENTLY SPEAKING TO PT OVER THE PHONE.
--- NOTE | 2018-05-06 07:30 | NUR ---
RECEIVED PATIENT AWAKE/ALERT IN BED, DENIES PAIN. LEFT LEG WITH WONG'S TRACTION IN PLACE, DENIES NUMBNESS OR TINGLING TO LLE. IV TO LFA INTACT AND INFUSING WELL. NO REDNESS OR SWELLING NOTED. MEJIA WITH YELLOW URINE DRAINAGE NOTED. POC EXPLAINED. CALL LIGHT IN REACH.
--- NOTE | 2018-05-06 07:42 | NUR ---
PT AWAKE DENIES ANY PAIN, NO SIGNS OF DISTRESS NOTED. ENDORSED CARE TO DAY SHIFT RN, ALL QUESTIONS ADDRESSED.
[2018-05-06 09:44] VITALS: BP 107/53
--- NOTE | 2018-05-06 09:45 | NUR ---
PATIENT C/O PAIN TO LEFT HIP 5/10 AFTER PREOP PREP MORPHINE 2MG IVP GIVEN, JUDY WASH COMPLETED AND MEJIA CARE PROVIDED WITH CURTAIN SUPERVISOR ASSISTED. REPOSITION UP IN BED RESTING COMFORTABLY. NO DISTRESS NOTED. KEEP NPO. IV TO LFA PATENT AND INTACT. DTR SIMONA CALLED FOR UPDATED. TRANSFER TO OR DTR HAVE MORE QUESTIONS REGARD PROCEDURE.
[2018-05-06 09:58] LABS: CALCIUM 7.9 mg/dL (8.5-10.1); CARBON DIOXIDE 22.5 mmol/L (21-32); CHLORIDE SERUM 111 mmol/L (98-107); CREATININE SERUM 0.7 mg/dL (0.6-1.0); GLUCOSE SERUM 102 mg/dL (74-106); POTASSIUM SERUM 3.5 mmol/L (3.5-5.1); SODIUM SERUM 142 mmol/L (136-145)
--- NOTE | 2018-05-06 10:50 | NUR ---
PATIENT RESTING IN BED COMFORTABLE AND PAIN IS TOLERATED. DR. SWANN WITH RESIDENTS AT BEDSIDE DISCUSS POC WITH SON-IN-LAW ANNALISE. ALL QUESTIONS ADDRESSED. OFFERED WARM BLANKET PER REQUEST, BILLIARD TABLE ASSEMBLER AT BEDSIDE DRAWING BLOOD. NEEDS MET. CALL LIGHT IN REACH.
--- NOTE | 2018-05-06 11:34 | NUR ---
PATIENT IN BED WITH SON-IN-LAW, HEPLOCK IV AND FLUSH WELL, NO REDNESS/SWELLING NOTED. OR NURSE GETTING PATIENT READY TO GO OFF FLOOR. PATIENT TRANPORT OFF THE FLOOR VIA BED WITH SON-IN-LAW ANNALISE. ANNALISE REMOVED AND TAKE PATIENT YELLOW RING HOME. DENTURE IN THE CUP AT BEDSIDE.
[2018-05-06 12:32] LABS: BASOPHIL % 0.2 % (0-2); RED CELL DISTRIBUTION WIDTH 13.1 % (11.5-14.5)
[2018-05-06 12:38] LABS: PLATELET COUNT 35 x10^3mcL (130-400)
--- NOTE | 2018-05-06 12:53 | NUR ---
Initial Nutrition Assessment Dx: Left hip fracture PMHx: Liver cirrhosis of unknown origin with portal HTN, esophageal varices PSHx: Cholecystectomy, oophorectomy Labs: (05/06) Na 142, K 3.5, BG 102, A1c 5.5, WBC 4.5, H/H 11.1L/31L Meds: Aldactone, Colace, Inderal, Mag-Ox, Morphine, [place], NSIV, Tylenol, Zofran Diet: NPO for sx procedure (previously on Regular diet up to 05/05/18) PO Intake: (05/05) B: 100% D: 60% Ht: 64" (163 cm) Wt: 112# (51 kg) BMI: 19.3 (Underweight for advanced age) IBW: 120# %IBW: 94% UBW: 110-120# Age: 77 y/o elderly female Food Allergies: NKFA Skin: Intact Blas: 16 Edema: Trace to BLE's GI: Last BM x 1 (05/06) Per H&P, pt. admitted with hip pain associated with recent fall at home prior to admission d/t feeling dizzy and falling to the ground. Otherwise, no acute events overnight per provider. Pt. will be undergoing surgical procedure today 05/06/18 for left hip fracture. Pt. endorses fair to good appetite that has improved since admission and does not have GI distress associated with diet order. T: Appears underweight/malnourished Problem with: No c/o N/V/D/C Problems with: Chewing: N Swallowing: N Current appetite: Good, fair Recent wt change: None %wt change: N/A Vitamin/Supplement use: None Special diet at home: Regular Physical activity: Ambulates with a cane at baseline without assistance. Education: No diet education provided during visit. Estimated Nutritional Needs Based on actual body weight 51 kg: Energy: 5088-1871 kcal/d (30-32 kcal/kg- wound healing, underweight) Protein: 61-71 g/d (1.2-1.4 g/kg)-wound healing support and preservation of lean body mass Fluid: 8999-8782 ml/d (1 ml/kcal-fluid balance) or per doctor Nutrition Diagnosis 1. Increased nutrient needs r/t scheduled surgical procedure for ORIF s/p left hip fx AEB needs for procedure-associated wound healing nutritional support and measured underweight BMI for advanced age of 19.3. Intervention/RD recommendations 1. When procedure is complete and pt. is able to tolerate PO diet, advance diet to regular diet and add Ensure Enlive BID to add an additional 700 kcal and 40 g protein for wound healing support. Monitor/Evaluate Goal: PO intake at least 75% of estimated needs Monitor: PO intake, Labs, GI function, diet tolerance, weights, skin F/U in 3-5 days as moderate risk (05/09-05/11)
--- NOTE | 2018-05-06 15:35 | NUR ---
RECEIVED PATIENT SLEEPY AROUSED BY TOUCH, APPEAR COMFORTABLE, NO DISTRESS NOTED. LT HIP DRESING CDI. NO DRAINAGE NOTED. PER DR. BARCLAY KEEP PATIENT ON LEFT SIDE FOR AT LEAST 2 HRS. MEJIA INTACT AND IV TO LFA PATENT AND FLUSH WELL. CONNECT TO IV PUMP CONT IVF ORDERED. SCD IN PLACE. UPDATED ANNALISE PATIENT SLEEPY BUT AROUSABLE. CALL LIGHT IN REACH.
[2018-05-06 16:40] VITALS: BP 104/61
--- NOTE | 2018-05-06 17:15 | NUR ---
PATIENT REMAIN SLEEPING, NO DISTRESS NOTED. BENJA LAYING ON LEFT SIDE ORDERED. DRESSING ON LEFT HIP NO BLEEDING NOTED. CALL LIGHT IN REACH. CONT TO MONITOR.
--- NOTE | 2018-05-06 18:25 | NUR ---
PATIENT STILL DROWSY, OPEN EYES WHEN REPOSITION, NO C/O PAIN AT THIS TIME, LEFT DINNER TRAY ON TABLE PATIENT TO DROWSY TO EAT. IV INTACT AND INFUSING WELL. NO REDNESS OR SWELLING NOTED. MEJIA INTACT AND PATENT. LT HIP DRESSING CDI NO BLEEDING NOTED. CALL LIGHT IN REACH.
[2018-05-06 21:07] VITALS: BP 103/53
[2018-05-06 21:59] VITALS: BP 100/50
--- NOTE | 2018-05-07 01:04 | NUR ---
PATIENT QUIETLY RESTING IN BED, CALL LIGHT WITHIN REACH. DENIES ANY PAIN. BREATHING IS EVEN AND UNLABORED. ALERT TO SELF ONLY WITH REORIENTATION NEEDED. TRAPEZE OVERHEAD AND BED ALARM ON FOR PATIENT SAFETY. IVF INFUSING TO LFA AT 70ML/HR NS, NO INFILTRATION NOTED.
[2018-05-07 06:09] VITALS: BP 98/44
[2018-05-07 06:59] LABS: CALCIUM 6.9 mg/dL (8.5-10.1); CARBON DIOXIDE 21.1 mmol/L (21-32); CHLORIDE SERUM 111 mmol/L (98-107); CREATININE SERUM 0.8 mg/dL (0.6-1.0); GLUCOSE SERUM 112 mg/dL (74-106); MAGNESIUM 1.7 mg/dL (1.8-2.4); SODIUM SERUM 143 mmol/L (136-145)
[2018-05-07 07:52] LABS: BASOPHIL % 0.1 % (0-2); RED CELL DISTRIBUTION WIDTH 13.4 % (11.5-14.5)
[2018-05-07 07:55] LABS: PLATELET COUNT 74 x10^3mcL (130-400)
--- NOTE | 2018-05-07 08:00 | NUR ---
RECEIVED PATIENT ALERT/ORIENTED TO PERSON. ABLE TO MADE NEEDS KNOWN. NO RESP DISTRESS ON RA. DENIED CHEST PAIN. 2ND DAY OF S/P ORIF L HIP. DRSG TO L HIP DRY/INTACT W/ OLD BLLOD OOZING NOTED. IVF OF NS 70CC/HR. IV SITE TO LFA INTACT. MEJIA PATENT W/ EMILIANO URINE OUTPUT. PATIENT TOLERATED CLEAR LIQUID DIET. NO N/V. C/O HUMGRY. ASSISTED REPOSITION IN BED. CALL LIGHT IN REACH.
[2018-05-07 09:51] VITALS: BP 84/47
--- NOTE | 2018-05-07 12:00 | NUR ---
MORPHINE 2MG IVP GIVEN AT 1030 FOR OOB W/ PHYSICAL THERAPIST. PATIENT HAD SAT ON CHAIR FOR 1 HOUR. PATIENT HAD LOOSE BM THIS TIME.
--- NOTE | 2018-05-07 13:30 | NUR ---
C/O LT HIP INCISIONAL PAIN ON 07/25; NORCO 7.5/325 PO GIVEN. CONTINUE MONITOR.
[2018-05-07 15:55] VITALS: BP 93/50
--- NOTE | 2018-05-07 18:25 | NUR ---
CONDITION STABLE. SKIN WARM/PINK. DENIED PAIN NOW. MEJIA 800CC OF AMBUR CLEAR URINE OUTPUT. HAD BM X1 THIS SHIFT. IVF OF NS 70CC/HR CONTINUED. ENDORSED CARE TO NOC NURSE.
--- NOTE | 2018-05-07 19:10 | NUR ---
REPORT RECIEVED FROM DAY SHIFT RN. PATIENT WAS SEEN AND IS RESTING IN BED COMFORTBALY. ON ROOM IAR. NO SOB OR DISTRESS NOTED. DENIES CHEST PAIN. NO C/O OF PAIN. IV TO THE LFA INFUSING NS WELL. PATENT AND INTACT. NO REDNESS OR SWELLING NOTED. DRESSING TO THE LEFT HIP IN PLACE, CDI. FC IN PLACE WITH YELLOW EMILIANO URINE. COMFORT AND SAFETY MEASURES MAINTAINED. CALL LIGHT IS WITHIN REACH. INSTRUCTED PATIENT TO CALL FOR ASSISTANCE. BED IS LOCKED AND IN THE LOWEST POSITION. SIDE RAILS UP X2. WILL CONTINUE TO MONITOR.
[2018-05-07 20:33] VITALS: BP 111/49
--- NOTE | 2018-05-07 21:26 | NUR ---
PATIENT IS C/O OF PAIN IN HER LEFT HIP AND LEG. FACIAL GRIMACING NOTED. PRN NORCO WAS ADMINSITERED PRESCRIBED. WILL CONTINUE TO MONITOR AND REASSESS PAIN LEVEL.
--- NOTE | 2018-05-08 00:30 | NUR ---
PATIENT IS ASLEEP AT THIS TIME. ON ROOM AIR. NO SOB OR DISTRESS NOTED. CALL LIGHT IS WITHIN REACH. WILL CONTINUE TO MONITOR
--- NOTE | 2018-05-08 03:12 | NUR ---
PATIENT IS ASLEEP AT THIS TIME. ON ROOM AIR. NO SOB OR RESP DISTRESS. CALL LIGHT WITHIN REACH. WILL CONTINUE TO MONITOR
[2018-05-08 05:26] VITALS: BP 97/48
--- NOTE | 2018-05-08 05:45 | NUR ---
ASSISTED PATIENT WAS DENTAL HYGIENE.
--- NOTE | 2018-05-08 06:26 | NUR ---
PATIENT SLEPT IN INTERVALS THROUGHOUT THE NIGHT. NO ACUTE CHANGES NOTED. ON ROOM AIR. NO SOB OR DISTRESS NOTED. C/O OF PAIN X1. IV TO THE LFA INFUSING NS WELL. PATENT AND INTACT. NO REDNESS OR SWELLING NOTED. COMFORT AND SAFETY MEASURES MAINTAINED. FC 850ML OUT YELLOW EMILIANO URINE. CALL LIGHT IS WITHIN REACH. BED IS LOCKED AND IN THE LOWEST POSITION. SIDE RAILS UP X2. WILL ENDORSE CARE TO DAY SHIFT RN.
[2018-05-08 07:22] LABS: BASOPHIL % 0.3 % (0-2); RED CELL DISTRIBUTION WIDTH 12.3 % (11.5-14.5)
[2018-05-08 07:35] LABS: PLATELET COUNT 60 x10^3mcL (130-400)
[2018-05-08 07:41] LABS: CALCIUM 7.3 mg/dL (8.5-10.1); CARBON DIOXIDE 21.5 mmol/L (21-32); CHLORIDE SERUM 112 mmol/L (98-107); CREATININE SERUM 0.7 mg/dL (0.6-1.0); GLUCOSE SERUM 111 mg/dL (74-106); MAGNESIUM 1.7 mg/dL (1.8-2.4); POTASSIUM SERUM 3.6 mmol/L (3.5-5.1); SODIUM SERUM 140 mmol/L (136-145)
--- NOTE | 2018-05-08 08:00 | NUR ---
RECEIVED PATIENT ALERT/ORIENTED TO PERSON/PLACE AND TIME. NO RESP DISTRESS ON RA. DENIED CHEST PAIN. 3ED DAY OF POST LT HIP ORIF SURGERY. DRSG TO LT HIP DRY/INTACT. OLD OOZING TO DRSG NOTED. MEJIA PATENT W/ YELLOW URINE OUTPUT. SCD TO BLE. NO C/O PAIN NOW. TOLERATED REGULAR DIET BREAKFAST. IVF OF NS 70CC/HR. IV ISTE TO LFA INTACT. CALL LIGHT IN REACH.
[2018-05-08 09:29] VITALS: BP 92/40
--- NOTE | 2018-05-08 10:17 | NUR ---
MEJIA CATH D/C'D PER ORDER. 250CC OF DARK YELLOW URINE COLLECTED. PATIENT OOB W/ PHYSICAL THERAPIST AND WALKED 20 FTS. PATIENT FORMED BM X1.
[2018-05-08 11:55] VITALS: BP 92/40
[2018-05-08] MEDS ORDERED: NORCO1 TA1 PO (12:53)
--- NOTE | 2018-05-08 15:09 | NUR ---
PATIENT WOULD BE TRANSFERED TO [facility], [facility]. REPORT GIVEN BY KEON NASH, CHARGE NURSE TO NURSING TESTING AND REGULATING TECHNICIAN OF [facility]. OPENED SURGICAL DRSG PER ORDER OF DR. NATH. TWO INCISION TO L HIP CLOSED WITH CARIDAD. LT UP INCISION HAS 8 STABLES AND LOWER ONE HAS 6 CARIDAD. ALL INTACT. PURPLE DISCOLORATION AROUND INCISIONS. SMALL SEROSANGUINOUS DRAIANGE FROM UP INCISION NOTED. NEW DRY DRSG APPLIED. NORCO 7.5/325 PO GIVEN.
[2018-05-08 16:02] LABS: BASOPHIL % 0.1 % (0-2); RED CELL DISTRIBUTION WIDTH 13.4 % (11.5-14.5)
[2018-05-08 16:04] LABS: PLATELET COUNT 82 x10^3mcL (130-400)
--- NOTE | 2018-05-08 16:12 | NUR ---
DR NATH MADE AWARE OF H/H- 7.04/06. PER DR NATH PATIENT CAN BE TRANSFERRED TO [facility]. DR NATH AWARE THAT [facility] REQUESTED A PRESCRIPTION FOR PAIN MEDICATION. PER DR NATH, DR SWANN WILL FAX A PRESCRIPTION FOR PAIN MEDICATION TO THE FACILITY AND OK TO TRANSFER IF HEMOGLOBIN IS OVER 7.0. CALL [facility] AND UPDATED [facility] -RN ABOUT PRESCRIPTION AND H&H RESULT. ATTENDING NURSE FREDI AWARE.
--- NOTE | 2018-05-08 16:28 | NUR ---
D/C TO [facility] VIA [facility]ICAL TRANSPORTATION. IV D/C'D. OVER NEEDLE CATHETER INTACT.
== END 2018-05-08 16:30 | DRG 308 ==
LOC: ED 11:59 → MU 14:48
PROVIDERS: Emergency Medicine; Internal Medicine; Neuromusculoskeletal Medicine, Sports Medicine; ADMIT Family Medicine
PROC: 0QS736Z Reposition Left Upper Femur with Intramedullary Internal Fixation Device, Percutaneous Approach (ICD-10-PCS; 2018-05-06)
PROC: 30233R1 Transfusion of Nonautologous Platelets into Peripheral Vein, Percutaneous Approach (ICD-10-PCS; principal; 2018-05-06 12:00)
DX: S72.142A Displaced intertrochanteric fracture of left femur, initial encounter for closed fracture (principal); N17.0 Acute kidney failure with tubular necrosis; E83.42 Hypomagnesemia; D69.6 Thrombocytopenia, unspecified; R74.0 Nonspecific elevation of levels of transaminase and lactic acid dehydrogenase [LDH]; K74.69 Other cirrhosis of liver; K74.60 Unspecified cirrhosis of liver; W18.39XA Other fall on same level, initial encounter; Y93.89 Activity, other specified; Y92.012 Bathroom of single-family (private) house as the place of occurrence of the external cause; Z90.49 Acquired absence of other specified parts of digestive tract; Z90.721 Acquired absence of ovaries, unilateral; Z23 Encounter for immunization
CPT/HCPCS: 76001; 84439; 90658; 90732; 97110-GP; 97112-GP; 97116-GP; 97530-GP; C1713; J0690; J1170; J2270; J2405; J3010; J3490; J7030; P9035; Q0092

== ENCOUNTER 2018-08-15 06:23 | Day surgery (SDC) | payer OTHER ==
[~2018-08-15] VITALS: Ht 167.6 cm; Wt 49.9 kg
[~2018-08-15 06:23] MED LIST changes: +NORCO1 TA1 PO; +SPIRONOLACTONE50 MG PO
[2018-08-15 06:38] VITALS: BP 105/59
[2018-08-15 10:24] VITALS: BP 96/59
== END 2018-08-15 10:05 | disposition home or self-care (01) ==
LOC: DS 06:23 → GI 08:00 → OR 08:00 → DS 10:05
DX: K29.50 Unspecified chronic gastritis without bleeding (principal); K74.60 Unspecified cirrhosis of liver; K76.6 Portal hypertension; I85.10 Secondary esophageal varices without bleeding; Z79.899 Other long term (current) drug therapy; Z78.0 Asymptomatic menopausal state
CPT/HCPCS: 43235; G0500; J1200; J1610; J2250; J2310; J3010; J3490